=== PATIENT | female | born 1950 | race Caucasian/White ===

== ENCOUNTER → 2018-03-05 | Outpatient (CLI) | payer MEDICARE, OTHER ==
[~2018-03-05] MED LIST: ZESTRIL 10MG10 MG; ZOCOR 20MG20 MG PO; ZOFRAN 4MG T4 MG/TAB PO
== END ==
LOC: MC.RAD 08:13
DX: Z12.31 Encounter for screening mammogram for malignant neoplasm of breast (principal)

== ENCOUNTER → 2020-05-06 | Outpatient (CLI) | payer MEDICARE, OTHER | LOC: MC.RAD 10:13 | DX: Z12.31 Encounter for screening mammogram for malignant neoplasm of breast (principal) ==

== ENCOUNTER 2022-05-04 08:46 | Day surgery (SDC) | payer MEDICARE, OTHER ==
[~2022-05-04] VITALS: Ht 149.9 cm; Wt 50.6 kg
[2022-05-04 11:30] VITALS: BP 154/75; PULSE 82; TEMP 98.6
[2022-05-04] MEDS ORDERED: TOPROL XL 50MG50 MG PO (11:46)
[2022-05-04] MEDS ORDERED: PRINIVIL20 MG PO (11:47)
[2022-05-04] MEDS ORDERED: XANAX 1MG1 MG PO (11:47)
[2022-05-04] MEDS ORDERED: LIPITOR 40MG TA40 MG PO (11:48)
[2022-05-04 12:20] VITALS: BP 140/67; PULSE 70; TEMP 98
[2022-05-04 12:35] VITALS: BP 161/72; PULSE 75
[2022-05-04 12:50] VITALS: BP 150/74; PULSE 74
== END 2022-05-04 13:10 | disposition home or self-care (01) ==
LOC: SDCO 08:46
DX: Z12.11 Encounter for screening for malignant neoplasm of colon (principal); D12.5 Benign neoplasm of sigmoid colon; K21.9 Gastro-esophageal reflux disease without esophagitis; Z80.0 Family history of malignant neoplasm of digestive organs
CPT/HCPCS: J2704; J7120

== ENCOUNTER → 2022-05-07 | Outpatient (CLI) | payer MEDICARE, OTHER ==
[~2022-05-07] MED LIST changes: +LIPITOR 40MG TA40 MG PO; +PRINIVIL20 MG PO; +TOPROL XL 50MG50 MG PO; +XANAX 1MG1 MG PO
== END ==
LOC: MC.RAD 09:04
DX: Z12.31 Encounter for screening mammogram for malignant neoplasm of breast (principal)

== ENCOUNTER → 2022-06-13 | Outpatient (CLI) | payer MEDICARE, OTHER ==
[~2022-06-13] MED LIST changes: +ASPIRIN 81M81 MG/TA2 PO; +MELATONIN ER10 MG PO; +PROTONIX 40MG T40 MG PO
[2022-06-13 18:01] LABS: HEMOGLOBIN 12.2 g/dl (12.5-16.0); MEAN CELL VOLUME 86 fl (80.0-100.0); MEAN CORPUSCULAR HEMOGLOBIN 31 pg (27-31); MEAN CORPUSCULAR HGB CONC 36 g/dl (33.0-37.0); MEAN PLATELET VOLUME 8.7 fl (7.4-10.4); PLATELET COUNT 378 K/mm3 (130-400); RED BLOOD COUNT 3.93 M/mm3 (4.10-5.30); REDCELL DISTRIBUTION WIDTH-CV 11.3 % (11.5-14.5)
[2022-06-13 18:04] LABS: HEMATOCRIT 33.6 % (37.0-47.0)
[2022-06-13 18:20] LABS: ALBUMIN 4.3 gm/dL (3.4-4.8); BILIRUBIN,TOTAL 0.6 mg/dL (0.2-1.2); CALCIUM 8.8 mg/dL (8.4-10.2); CREATININE, serum 0.7 mg/dL (0.57-1.11); POTASSIUM 3.9 mmol/L (3.5-4.5); TOTAL PROTEIN 6.8 gm/dL (6.2-8.1)
[2022-06-13 18:40] LABS: THYROID STIMULATING HORMONE 0.202 uIU/mL (0.350-4.940)
== END ==
LOC: COL.LAB 17:35
PROVIDERS: Physician Assistant Medical
DX: E87.1 Hypo-osmolality and hyponatremia (principal); R42 Dizziness and giddiness

== ENCOUNTER 2022-06-14 12:03 | Inpatient (IN) | payer MEDICARE, OTHER ==
[~2022-06-14] VITALS: Ht 149.9 cm; Wt 51.1 kg
[~2022-06-14 12:03] MED LIST changes: -ASPIRIN 81M81 MG/TA2 PO; -MELATONIN ER10 MG PO; -PROTONIX 40MG T40 MG PO
[2022-06-14 14:02] LABS: BASO % 0.3 % (0.0-2.0); EOS % 0.5 % (0.0-4.0); GRAN # 4.3 K/mm3 (1.4-6.5); GRAN % 68.9 % (42.2-75.2); HEMOGLOBIN 11.9 g/dl (12.5-16.0); LYMPH # 1.3 K/mm3 (1.2-3.4); LYMPH % 21.7 % (20.0-51.0); MEAN CELL VOLUME 85 fl (80.0-100.0); MEAN CORPUSCULAR HEMOGLOBIN 31 pg (27-31); MEAN CORPUSCULAR HGB CONC 37 g/dl (33.0-37.0); MONO # 0.5 K/mm3 (0.1-0.6); MONO % 8.3 % (1.7-9.3); PLATELET COUNT 382 K/mm3 (130-400); REDCELL DISTRIBUTION WIDTH-CV 11.5 % (11.5-14.5)
[2022-06-14 14:06] LABS: HEMATOCRIT 32.4 % (37.0-47.0)
[2022-06-14 14:19] LABS: ALBUMIN 3.9 gm/dL (3.4-4.8); ANION GAP 8 mmol/L (7-16); BLOOD UREA NITROGEN 10 mg/dL (10-20); CALCIUM 8.6 mg/dL (8.4-10.2); CARBON DIOXIDE 23 mmol/L (23-31); CHLORIDE 90 mmol/L (98-107); CREATININE, serum 0.64 mg/dL (0.57-1.11); GLUCOSE 107 mg/dL (70-99); MAGNESIUM 1.8 mg/dL (1.6-2.6); POTASSIUM 3.3 mmol/L (3.5-4.5); SODIUM 121 mmol/L (136-145); URIC ACID 1.4 mg/dL (2.6-6.0)
[2022-06-14 14:26] LABS: TROPONIN-I < 0.010 ng/mL (0.00-0.033)
[2022-06-14 14:40] LABS: COLLECTION METHOD CLEAN CATCH
[2022-06-14 14:50] LABS: URINE APPEARANCE Clear (CLEAR/HAZY); URINE COLOR Yellow (YELLOW)
[2022-06-14 14:52] LABS: URINE BLOOD TRACE-INTACT (NEGATIVE); URINE GLUCOSE Negative (NEGATIVE); URINE KETONE Negative (NEGATIVE); URINE NITRATE Negative (NEGATIVE); URINE PROTEIN(semi-quant) Negative (NEGATIVE); URINE UROBILINOGEN 0.2 E.U/dL (0.2-1.0)
[2022-06-14 14:54] LABS: OSMOLALITY-SERUM 249 Osm/kg (275-300)
[2022-06-14 15:04] LABS: SQUAMOUS EPITHELIAL None Seen /hpf (0-10); URINE BACTERIA Rare /hpf (NONE SEEN); URINE RBC 0-2 /hpf (0-2)
[2022-06-14 15:29] LABS: OSMOLALITY-URINE random 116 Osm/kg (50-1200)
[2022-06-14 17:22] VITALS: BP 172/62; PULSE 75; TEMP 98.3
[2022-06-14] MEDS ORDERED: ASPIRIN 81M81 MG/TA2 PO (17:39)
[2022-06-14] MEDS ORDERED: PROTONIX 40MG T40 MG PO (17:39)
[2022-06-14] MEDS ORDERED: MELATONIN ER10 MG PO (17:42)
--- NOTE | 2022-06-14 18:01 | NUR ---
PT ADMITTED TO MEDICAL UNIT. ADMISSION INTAKE AND ASSESSMENT COMPLETED. MED REC UPDATED. PT ORIENTED TO ROOM, AT BEDSIDE. PT DENIES ANY PAIN OR NEEDS AT THIS TIME. PT STATES SHE HAS HAD SOME CONSTIPATION AND HAD TROUBLE URINATING DOWNSTAIRS. PT STATES SHE WILL ATTEMPT TO URINATE AFTER EATING DINNER. CALL LIGHT WITHIN REACH. UPDATED ON POC. WILL CONTINUE TO MONITOR.
[2022-06-14 20:11] VITALS: BP 154/73; PULSE 71; TEMP 98.5
[2022-06-14 20:20] LABS: CALCIUM 8.1 mg/dL (8.4-10.2); CREATININE, serum 0.62 mg/dL (0.57-1.11)
[2022-06-14 23:33] VITALS: BP 160/60; PULSE 63; TEMP 98.5
[2022-06-15 02:01] LABS: CALCIUM 8.3 mg/dL (8.4-10.2); CREATININE, serum 0.61 mg/dL (0.57-1.11)
[2022-06-15 04:23] VITALS: BP 138/53; PULSE 57; TEMP 98.1
--- NOTE | 2022-06-15 05:00 | NUR ---
ASSESSMENT COMPLETE FOR LUNCHROOM AIDE. PT RESTING IN HER RECLINER WATCHING TV. PT COMPLAINED OF CONSTIPATION. HOSPITALIST CALLED. OLYA ORDERED AND GIVEN. WILL CONTINUE TO MONITOR FOR EFFECTIVENESS AND PASS ON TO DAYSHIFT RN. PT DENIED GENERAL PAIN, CHEST PAIN, PALPITATIONS, SOB, N,V,D OR DIZZINESS. PT EXPRESSED NO ADDITIONAL NEEDS AT THIS TIME. CALL LIGHT WITHIN REACH.
[2022-06-15 07:17] LABS: CREATININE, serum 0.56 mg/dL (0.57-1.11); POTASSIUM 3.7 mmol/L (3.5-4.5)
[2022-06-15 07:24] VITALS: BP 138/60; PULSE 62; TEMP 98.3
--- NOTE | 2022-06-15 08:42 | NUR ---
PT SITTING UP IN BED, MORNING MEDICATIONS GIVEN. SHIFT ASSESSMENT COMPLETED. PT DENIES ANY PAIN AND STATES SHE FEELS ABOUT THE SAME YESTERDAY. PT REPORTS SHE HAS BEEN URINATING FINE OVERNIGHT BUT HAS HAD SOME CONSTIPATION. IVF INFUSING TO L FOREARM. PT A&OX4. CALL LIGHT WITHIN REACH. CONTINUING TO MONITOR.
[2022-06-15 11:56] VITALS: BP 142/56; PULSE 67; TEMP 98.3
--- NOTE | 2022-06-15 13:16 | NUR ---
Snehal: No judaism preference Situation: messenger copy stopped by room on rounds Background: Pt was sitting in chair content Assessment: Pt has no needs right now. Pt appreciated the visit Recommendation: Patrol Driver will follow up as needed
--- NOTE | 2022-06-15 14:51 | NUR ---
Fuse Cup Expander met with patient to discuss discharge planning. Patient lives in [place] with her , Kobe (ph#[phone]) who is at bedside. Patient sees Dr. Valerie Cardona for primary care and obtains medications from the [facility] in [place] with no difficulties. Patient does not use any DME and is independent with [facility]. Patient drives and reports no difficulties getting to her medical appointments. Patient's reports they are in the process of completing DPOA-HC with defense attorney, Karel Zaldivar. Patient plans to return home at time of discharge and wishes she could go home today. Discharge Plan: Home
[2022-06-15 15:31] VITALS: BP 129/49; PULSE 67
[2022-06-15 19:56] VITALS: BP 127/52; PULSE 62; TEMP 97.5
[2022-06-16] VITALS (7 sets, daily range): BP systolic 120–161; BP diastolic 48–80; PULSE 65–82; TEMP 97.6–98.4
--- NOTE | 2022-06-16 02:25 | NUR ---
THE PATIENT IS ALERT AND ORIENTED AND FOLLOWS COMMANDS APPROPRIATELY. DURING THE SHIFT CHANGE ASSESSMENT THE PATIENT WAS ASSISTED TO THE BATHROOM WITH A STEADY GAIT. NO S/S OF DISTRESS NOTED. WHEN THE PATIENT WAS ASSISTED BACK TO BED CALL LIGHT WITHIN REACH, PERSONAL BELONGINGS WITHIN REACH AND BED IN LOWEST POSITION.
[2022-06-16 06:14] LABS: BASO % 0.3 % (0.0-2.0); EOS % 0.3 % (0.0-4.0); GRAN # 4.4 K/mm3 (1.4-6.5); GRAN % 65.9 % (42.2-75.2); LYMPH # 1.7 K/mm3 (1.2-3.4); LYMPH % 25.1 % (20.0-51.0); MEAN CELL VOLUME 89 fl (80.0-100.0); MEAN CORPUSCULAR HEMOGLOBIN 31 pg (27-31); MEAN CORPUSCULAR HGB CONC 35 g/dl (33.0-37.0); MEAN PLATELET VOLUME 9.1 fl (7.4-10.4); MONO # 0.5 K/mm3 (0.1-0.6); MONO % 8.1 % (1.7-9.3); PLATELET COUNT 322 K/mm3 (130-400); RED BLOOD COUNT 3.24 M/mm3 (4.10-5.30); REDCELL DISTRIBUTION WIDTH-CV 11.8 % (11.5-14.5)
[2022-06-16 06:35] LABS: CALCIUM 7.4 mg/dL (8.4-10.2); CREATININE, serum 0.55 mg/dL (0.57-1.11); POTASSIUM 3.2 mmol/L (3.5-4.5)
[2022-06-16 07:17] LABS: HEMATOCRIT 28.8 % (37.0-47.0)
--- NOTE | 2022-06-16 08:30 | NUR ---
Patient is resting in bed, alert and oriented, last NA lab 127. Continues getting NS 75 ML/HR. Assessment completed, meds provided. No other needs at this time. Call light within reach.
[2022-06-16 16:30] LABS: CALCIUM 7.6 mg/dL (8.4-10.2); CREATININE, serum 0.59 mg/dL (0.57-1.11); POTASSIUM 3.6 mmol/L (3.5-4.5)
--- NOTE | 2022-06-17 01:30 | NUR ---
NURSING SHIFT ASSESSMENT COMPLETED AT THIS TIME. NO S/S OF DISTRESS NOTED. FAMILY AT BEDSIDE. THE PATIENT HAS BEEN OUT OF HER ROOM AMBULATING WITH MINIMAL SBA IN THE HW. BED IN LOW POSITION, CALL LIGHT WTIHIN REACH, PERSONAL BELONGINGS WITHIN REACH.
[2022-06-17 03:22] VITALS: BP 151/62; PULSE 77; TEMP 98.2
[2022-06-17 06:23] LABS: BASO % 0.4 % (0.0-2.0); EOS # 0.1 K/mm3 (0.0-0.7); EOS % 1.2 % (0.0-4.0); GRAN # 4.7 K/mm3 (1.4-6.5); GRAN % 61.8 % (42.2-75.2); HEMOGLOBIN 10.7 g/dl (12.5-16.0); LYMPH % 26.9 % (20.0-51.0); MEAN CELL VOLUME 93 fl (80.0-100.0); MEAN CORPUSCULAR HEMOGLOBIN 32 pg (27-31); MEAN CORPUSCULAR HGB CONC 35 g/dl (33.0-37.0); MEAN PLATELET VOLUME 8.9 fl (7.4-10.4); MONO # 0.7 K/mm3 (0.1-0.6); MONO % 9.4 % (1.7-9.3); PLATELET COUNT 350 K/mm3 (130-400); RED BLOOD COUNT 3.33 M/mm3 (4.10-5.30); REDCELL DISTRIBUTION WIDTH-CV 12.1 % (11.5-14.5)
[2022-06-17 06:30] LABS: HEMATOCRIT 30.8 % (37.0-47.0)
[2022-06-17 06:44] LABS: CALCIUM 7.9 mg/dL (8.4-10.2); CREATININE, serum 0.56 mg/dL (0.57-1.11); POTASSIUM 3.5 mmol/L (3.5-4.5)
[2022-06-17 07:33] VITALS: BP 170/69; PULSE 77; TEMP 98.5
--- NOTE | 2022-06-17 08:00 | NUR ---
Patient is resting in bed, alert and oriented x 4, with HTN. Morning Na+ 134, K+ 3.5. Denies joann pain. Assessment completed, meds provided. No other needs at this time. Call light within reach.
== END 2022-06-17 11:45 | disposition home or self-care (01) | DRG 641 ==
LOC: COL.ER 12:03 → MEDICAL 16:39
PROVIDERS: Emergency Medicine; Family Medicine; Physician Assistant; ADMIT Internal Medicine
DX: E87.1 Hypo-osmolality and hyponatremia (principal); I10 Essential (primary) hypertension; E78.5 Hyperlipidemia, unspecified; K21.9 Gastro-esophageal reflux disease without esophagitis; M81.0 Age-related osteoporosis without current pathological fracture; G47.00 Insomnia, unspecified; E87.6 Hypokalemia; E83.39 Other disorders of phosphorus metabolism; D64.9 Anemia, unspecified; E86.1 Hypovolemia; E86.0 Dehydration; Z98.51 Tubal ligation status; Z90.710 Acquired absence of both cervix and uterus; Z88.5 Allergy status to narcotic agent; Z88.8 Allergy status to other drugs, medicaments and biological substances; Z90.49 Acquired absence of other specified parts of digestive tract
CPT/HCPCS: J7030

== ENCOUNTER → 2022-06-14 | Outpatient (CLI) | payer MEDICARE, OTHER ==
[2022-06-14 11:09] LABS: POTASSIUM 3.2 mmol/L (3.5-4.5)
== END ==
LOC: COL.LAB 10:05
PROVIDERS: Family Medicine
DX: E87.1 Hypo-osmolality and hyponatremia (principal); R79.89 Other specified abnormal findings of blood chemistry